=== PATIENT | female | born 1985 | race Two or more races ===

== ENCOUNTER 2019-01-23 14:18 | Emergency (ER) | payer BC ==
[2019-01-23 14:49] VITALS: BP 125/85
--- NOTE | 2019-01-23 15:11 | UC ---
Hip/Pelvis Pain - HPI Summary HPI Summary: 33 y/o female presents to the urgent care c/o left anterior hip join pain for the past 3-4 weeks. 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 Pain is 3/10 intermittent and sharp w/ certain movement localized on below the iliac crest w/ radiation to the groin. Pt denies Hx of injury, numbness or tingling sensation over the lower extremities, SOB, chest pain, abdominal pain,, urinary symptoms, Hx of STD, flank pain, lower back pain, N/V/D. LMP:this week w/ IUD. Fort he past 2 days pain worsen since she has been doing her classes, now she has mild limping. Hx of herniated disc on L4-L5 - History Of Current Complaint Chief Complaint: UCLowerExtremity Stated Complaint: PAIN IN LOWER LEFT SIDE Time Seen by Provider: 01/23/19 15:09 Hx Obtained From: Patient Hx Last Menstrual Period: this week ?: No Onset/Duration: Gradual Onset, Lasting Weeks - 3-4 weeks, Still Present, Worse Since - 2 days Timing: Intermittent Episodes Lasting: - seconds Severity Initially: Mild Severity Currently: Moderate Pain Intensity: 4 Pain Scale Used: 0-10 Numeric Location: Discrete At: - left hip pain, Radiates To: - groin Character Of Pain: Dull, Aching, Spasmodic Aggravating Factor(s): Movement, Other - walking Alleviating Factor(s): Rest Associated Signs And Symptoms: Positive: Negative. Negative: Swelling, Redness , Bruising, Fever, Weakness, Dizziness, Abdominal Pain, Knee Pain - Risk Factors Septic Arthritis Risk Factor: Negative - Allergies/Home Medications Allergies/Adverse Reactions: Allergies Allergy/AdvReac Type Severity Reaction Status Date / Time No Known Allergies Allergy Verified 01/23/19 14:40 Home Medications: Home Medications NK [No Home Medications Reported] 01/23/19 [History Confirmed 01/23/19] PMH/Surg Hx/FS Hx/Imm Hx Previously Healthy: Yes - Pt denies PMHX - Surgical History Surgical History: Yes Surgery Procedure, Year, and Place: herniated disc L4, cholecystectomy - Family History Known Family History: Positive: None - Pt denies FMHX - Social History Occupation: Employed Full-time Lives: With Family Alcohol Use: Weekly Alcohol Amount: 3 Substance Use Type: None Smoking Status (MU): Never Smoked Tobacco Review of Systems All Other Systems Reviewed And Are Negative: Yes Constitutional: Positive: Negative Skin: Positive: Negative Eyes: Positive: Negative ENT: Positive: Negative Respiratory: Positive: Negative Cardiovascular: Positive: Negative Gastrointestinal: Positive: Negative Genitourinary: Positive: Negative Motor: Positive: Negative Neurovascular: Positive: Negative Musculoskeletal: Positive: Other: - left hip pain radiating to the groin Neurological: Positive: Negative Psychological: Positive: Negative Is Patient Immunocompromised?: No Physical Exam - Summary Physical Exam Summary: Vital Signs Reviewed: Yes Appearance: Well-Appearing, No Pain Distress, Well-Nourished female Eyes:: sclera and conjunctiva clear without injection, drainage, exudates PERRLA , EOMI. ENT: Positive: Normal ENT inspection, Hearing grossly normal, Pharynx normal, TMs normal, Uvula midline Neck: Positive: Supple, Nontender, No Lymphadenopathy Respiratory: Positive: Chest non-tender, Lungs clear, Normal breath sounds, No respiratory distress Cardiovascular: Positive: RRR, No Murmur, Pulses Normal, Brisk Capillary Refill Abdomen Description: Positive: Nontender, No Organomegaly, Soft. Negative: CVA Tenderness (R), CVA Tenderness (L) Bowel Sounds: Positive: Present Musculoskeletal: Positive: Strength Intact, left Hip: Pt is able to ambulate without difficulty or assistance, limp, or antalgic gait. No surface trauma, ecchymosis. No erythema, warmth. No deformity, crepitus, or obvious asymmetry of the RT hip. No Tenderness to palpation over the symphysis pubis, ischial bone, trochanter, SI notch, buttocks, quadriceps, femoral triangle, inguinal ligament. Point tenderness on Rt lateral side of the hip below the iliac crest. No inguinal lymphadenopathy. FROM limited due to pain. Distal motor and neurovascular status are intact.No inguinal hernia palpated Neuro: Alert and oriented x 3. No acute neurological deficits. Speech is normal. Psychological: WNL Skin: Dry and warm Triage Information Reviewed: Yes Vital Signs: Initial Vital Signs Temp 97.8 F 01/23/19 14:41 Pulse 62 01/23/19 14:41 Resp 18 01/23/19 14:41 BP 125/85 01/23/19 14:41 Pulse Ox 100 01/23/19 14:41 Hip Injury Course/Dx - Course Course Of Treatment: 33 y/o female presents to the urgent care c/o left anterior hip join pain for the past 3-4 weeks. 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 Pain is 3/10 intermittent and sharp w/ certain movement localized on below the iliac crest w/ radiation to the groin. Pt denies Hx of injury, numbness or tingling sensation over the lower extremities, SOB, chest pain, abdominal pain,, urinary symptoms, Hx of STD, flank pain, lower back pain, N/V/D. LMP:this week w/ IUD. Fort he past 2 days pain worsen since she has been doing her classes, now she has mild limping. Hx of herniated disc on L4-L5 Hx obtained. Rt hip X-ray ordered, Impression: OTHER FINDINGS: An IUD is noted. There is degenerative disc disease at L4-L5. IMPRESSION: NO ACUTE OSSEOUS INJURY. IF SYMPTOMS PERSIST, RECOMMEND REPEAT IMAGING. Pt most likely with a Muscle strain on examination. Pt given Ibuprofen PO for pain by the nurse. Pt advised to continue taking Ibuprofen PO and f/u w/ sports Medicine orthopedic for further management on her symptoms. Recommended to Avoid strenuous exercise or Ban until symptoms resolve. D/c instructions explained. Pt understood and agreed w/ plan of care. pt left the clinic ambulating - Differential Dx/Diagnosis Differential Diagnosis/HQI/PQRI: Arthritis, Contusion, Dislocation, Sciatica, Sprain, Strain Provider Diagnosis: Muscle strain of left hip, Left hip pain Discharge ED - Sign-Out/Discharge Documenting (check all that apply): Patient Departure - D/C home All imaging exams completed and their final reports reviewed: Yes - Discharge Plan Condition: Stable Disposition: HOME Patient Education Materials: Groin Strain (ED) Referrals: Sharla Flannery MD [Primary Care Provider] - 3 Days [facility] [Provider Group] - 3 Days Additional Instructions: 1-Please take Ibuprofen PO 600mg q6-8hrs prn after meals as directed to alleviate pain and swelling. 2-Please apply ice, Please avoid standing for long periods of time, strenuous exercise, Avoid Ban practice for 1 week 3- Please f/u with Orthopedic from Sports Medicine in 3 days if not improvement of symptoms for further evaluation and treatment. - Billing Disposition and Condition Condition: STABLE Disposition: Home
[2019-01-23] MEDS ORDERED: Ibuprofen TAB* 400 MG PO ONE (15:20)
== END 2019-01-23 16:21 | disposition home or self-care (01) ==
LOC: UCCORT 14:18
DX: S76.012A Strain of muscle, fascia and tendon of left hip, initial encounter (principal); M25.552 Pain in left hip; X58.XXXA Exposure to other specified factors, initial encounter; Y92.9 Unspecified place or not applicable
CPT/HCPCS: 99202; A9270-GY; G0463